=== PATIENT | female | born 1930 | race Caucasian/White ===

== ENCOUNTER 2016-10-19 14:15 | Inpatient (IN) | payer MEDICARE, BC ==
[~2016-10-19 14:15] MED LIST: AMIODARONE HCL200 MG PO; AMLODIPINE BENAZEPRI PO; ASPIR 8181 MG; ASPIR-LOW81 M1 PO; ASPIRIN325 MG; AUGMENTIN 875-1 EAC2 PO; BENAZEPRIL HCL40 MG PO; BISOPROLOL FUMA10 M1 PO; BYSTOLIC10 MG; BYSTOLIC10 MG PO; CATAPRES-T0.2 MG/24; CATAPRES-T0.2 MG/24 TD; CATAPRES0.1 MG PO; CATAPRES0.2 M1 PO; CATAPRES0.2 MG PO; CIPRO500 MG PO; CLONIDINE HCL0.1 MG; CLONIDINE HCL0.2 MG; CRESTOR5 MG/TAB PO; CULTURELLE1 EAC1 PO; HYDROCHLOROTHIA25 M1 PO; HYTRIN2 MG PO; LASIX40 MG PO; LEVOTHYROXINE75 MC3 PO; LISINOPRIL-HCTZ; LOPERAMIDE2 M2 PO; LOTENSIN40 M1 PO; LUNESTA3 MG; MACROBID 100 M100 M1 PO; METOPROLOL TAR100 MG; METOPROLOL TART50 MG; MIRAPEX1 MG; MULTIVITAMIN1 TAB; NEXIUM20 MG PO; NORVASC10 M2 PO; NORVASC2.5 MG; OCUVITE TABLET1 TAB; OCUVITE TABLET1 TAB PO; OCUVITE WITH L1 EACH PO; OMEPRAZOLE20 M4 PO; OMEPRAZOLE20 MG; OXYGEN; POTASSIUM CHLO10 MEQ PO; POTASSIUM CHLO20 ME3 PO; RESTORIL30 M1 PO; RESTORIL30 MG; SENNA S TABLET1 EACH PO; SYNTHROID88 MCG; SYNTHROID88 MCG PO; THERA-M1 EAC1 PO; TYLENOL325 M2 PO; TYLENOL325 MG; ULTRAM50 MG; ULTRAM50 MG PO; VERAPAMIL HCL120 MG; VERAPAMIL HCL240 M; ZEGERID 20 MG C1 CAP PO; ZOCOR20 MG; ZOCOR20 MG PO; ZOFRAN4 M2 PO
[2016-10-19] MEDS ORDERED: LIPITOR40 M1 PO (16:03)
[2016-10-19] MEDS ORDERED: MACRODANTIN50 M2 PO (16:07)
[2016-10-19 16:20] LABS: BASO % 0.6 % (0-2); BASO ABSOLUTE COUNT 0.1 tho/cmm (0.0-0.2); EOS % 1.3 % (0-7); EOSINOPHIL ABSOLUTE COUNT 0.1 tho/cmm (0.0-0.7); HCT-HEMATOCRIT 30.4 % (34.0-49.0); HGB-HEMOGLOBIN 9.9 gm/dl (12.0-15.5); IMMATURE GRANULOCYTES ABSOLUTE 0.01 tho/cmm (0-0.03); IMMATURE GRANULOCYTES PERCENT 0.1 % (0-0.3); LYMPH % 13.9 % (20-45); LYMPH ABSOLUTE COUNT 1.2 tho/cmm (0.8-4.5); MCH (MEAN CORPUSCULAR HGB) 30.2 pg (28.0-32.0); MCHC MEAN CORPUSCULAR HGB CONC 32.6 % (32.0-36.0); MCV (MEAN CELL VOLUME) 92.7 fl (82.0-96.0); MEAN PLATELET VOLUME 10.8 cmc (9.4-12.4); MONO % 12.6 % (0-12); MONOCYTE ABSOLUTE COUNT 1.1 tho/cmm (0.0-1.2); NEUTROPHILS % 71.5 % (40-80); PLATELET COUNT 206 tho/cmm (150-450); RED BLOOD COUNT 3.28 mil/cmm (4.00-5.20); RED CELL DISTRIBUTION WIDTH 15.2 % (12.4-16.4); WHITE BLOOD COUNT 8.4 tho/cmm (4.0-10.0)
[2016-10-19] MEDS ORDERED: METAMUCIL PACK3.4 G1 PO (16:28)
[2016-10-19 16:33] LABS: ANION GAP 12 mmol/L (0-20); BLOOD UREA NITROGEN 26 mg/dl (6-24); CARBON DIOXIDE-VENOUS 27 mmol/L (22-32); CHLORIDE 107 mmol/l (96-110); CREATININE 1.06 mg/dl (0.50-1.10); GLUCOSE 148 mg/dL (70-110); MAGNESIUM 1.9 mg/dl (1.8-2.6); SODIUM 142 mmol/L (135-145); eGFR VALUE FOR BLACK 55 mL/Min
[2016-10-20 04:23] LABS: BASO % 0.9 % (0-2); BASO ABSOLUTE COUNT 0.1 tho/cmm (0.0-0.2); EOS % 3.8 % (0-7); EOSINOPHIL ABSOLUTE COUNT 0.2 tho/cmm (0.0-0.7); HCT-HEMATOCRIT 31.3 % (34.0-49.0); HGB-HEMOGLOBIN 10.1 gm/dl (12.0-15.5); IMMATURE GRANULOCYTES ABSOLUTE 0.01 tho/cmm (0-0.03); IMMATURE GRANULOCYTES PERCENT 0.2 % (0-0.3); LYMPH ABSOLUTE COUNT 1.4 tho/cmm (0.8-4.5); MCHC MEAN CORPUSCULAR HGB CONC 32.3 % (32.0-36.0); MCV (MEAN CELL VOLUME) 92.9 fl (82.0-96.0); MEAN PLATELET VOLUME 10.7 cmc (9.4-12.4); MONO % 12.2 % (0-12); MONOCYTE ABSOLUTE COUNT 0.7 tho/cmm (0.0-1.2); NEUTROPHIL ABSOLUTE COUNT 3.2 tho/cmm (1.6-8.0); NEUTROPHIL-AUTOMATED 3.2 tho/cmm (1.6-8.0); NEUTROPHILS % 57.9 % (40-80); PLATELET COUNT 190 tho/cmm (150-450); RED BLOOD COUNT 3.37 mil/cmm (4.00-5.20); RED CELL DISTRIBUTION WIDTH 15.5 % (12.4-16.4); WHITE BLOOD COUNT 5.6 tho/cmm (4.0-10.0)
[2016-10-20 04:29] LABS: ANION GAP 10 mmol/L (0-20); BLOOD UREA NITROGEN 18 mg/dl (6-24); CALCIUM 8.3 mg/dl (8.5-10.5); CARBON DIOXIDE-VENOUS 27 mmol/L (22-32); CHLORIDE 108 mmol/l (96-110); CREATININE 0.83 mg/dl (0.50-1.10); GLUCOSE 96 mg/dL (70-110); POTASSIUM 3.4 mmol/L (3.7-5.1); SODIUM 142 mmol/L (135-145); eGFR VALUE FOR BLACK 74 mL/Min
[2016-10-22] MEDS ORDERED: HYDRALAZINE HCL25 M1 PO (09:08)
[2017-01-20] MEDS ORDERED: BISOPROLOL FUMA10 M1 PO (18:31)
[2017-01-20] MEDS ORDERED: MIRTAZAPINE15 M1 PO (18:35)
[2017-01-21] MEDS ORDERED: POLYETHYLENE GL17 G1 PO (14:29)
[2017-01-21] MEDS ORDERED: NATURAL FIBER283 GM PO (14:30)
[2017-01-21] MEDS ORDERED: HEMORRHOIDAL OI57 GM TOP (14:30)
[2017-01-21] MEDS ORDERED: MILK OF MAGNESIA PO (14:31)
[2017-01-21] MEDS ORDERED: CORTIZONE-10 1%28 GM TOP (14:32)
== END 2016-10-22 12:30 | disposition swing bed (61) | DRG 87 ==
LOC: EDMED 14:15 → EMR2 18:02 → CCU 19:45 → 5EB 10-21 02:50
PROVIDERS: Nurse Practitioner Family; ADMIT Hospitalist
DX: S06.5X1A Traumatic subdural hemorrhage with loss of consciousness of 30 minutes or less, initial encounter (principal); E11.51 Type 2 diabetes mellitus with diabetic peripheral angiopathy without gangrene; Z95.1 Presence of aortocoronary bypass graft; R19.7 Diarrhea, unspecified; W19.XXXA Unspecified fall, initial encounter; R55 Syncope and collapse; Z66 Do not resuscitate; I25.10 Atherosclerotic heart disease of native coronary artery without angina pectoris; I10 Essential (primary) hypertension; E03.9 Hypothyroidism, unspecified; E78.5 Hyperlipidemia, unspecified; Z88.8 Allergy status to other drugs, medicaments and biological substances; Z79.82 Long term (current) use of aspirin; Z88.2 Allergy status to sulfonamides; I95.1 Orthostatic hypotension; S01.312A Laceration without foreign body of left ear, initial encounter
CPT/HCPCS: C8929; J7030